=== PATIENT | male | born 1990 | race Caucasian/White ===

== ENCOUNTER 2019-02-10 12:49 | Emergency (ER) | payer OTHER ==
[~2019-02-10] VITALS: Ht 182.9 cm; Wt 77.1 kg
[~2019-02-10 12:49] MED LIST: CYCLOBENZAPRINE10 MG PO; IBUPROFEN800 MG PO; PROVENTIL HFA6.7 GM INH
[2019-02-10] MEDS ORDERED: EPIN0.3P IM (13:04)
[2019-02-10] MEDS ORDERED: NICOTINE PATCH1 EACH TD (13:04)
[2019-02-10] MEDS ORDERED: MELATONIN3 MG PO (13:05)
[2019-02-10] MEDS ORDERED: EPIPEN 2-P0.3 MG/0.3 IM (13:10)
[2019-02-10] MEDS ORDERED: BENADRYL25 MG PO (13:10)
== END 2019-02-10 14:40 | disposition home or self-care (01) ==
LOC: ED 12:49
DX: T63.441A Toxic effect of venom of bees, accidental (unintentional), initial encounter (principal); F17.200 Nicotine dependence, unspecified, uncomplicated; Z91.030 Bee allergy status; Z79.899 Other long term (current) drug therapy
CPT/HCPCS: 96374; 99283-25; J2930

== ENCOUNTER 2021-06-15 21:13 | Emergency (ER) | payer OTHER ==
[~2021-06-15] VITALS: Ht 182.9 cm; Wt 77.1 kg
[~2021-06-15 21:13] MED LIST changes: +BENADRYL25 MG PO; +EPIN0.3P IM; +EPIPEN 2-P0.3 MG/0.3 IM; +MELATONIN3 MG PO; +NICOTINE PATCH1 EACH TD
[2021-06-15] MEDS ORDERED: ACYCLOVIR200 MG PO (22:51)
== END 2021-06-15 23:20 | disposition home or self-care (01) ==
LOC: ED 21:13
DX: A60.00 Herpesviral infection of urogenital system, unspecified (principal); Z87.891 Personal history of nicotine dependence; Z91.030 Bee allergy status; Z79.899 Other long term (current) drug therapy
CPT/HCPCS: 81001; 87491; 99283

== ENCOUNTER 2021-11-14 02:38 | Emergency (ER) | payer OTHER ==
[~2021-11-14] VITALS: Ht 180.3 cm; Wt 74.1 kg
[~2021-11-14 02:38] MED LIST changes: +ACYCLOVIR200 MG PO
--- OUTSIDE RECORDS SUMMARY | 2021-11-14 02:46 | XMS ---
PreManage Notification: MELANI RANGEL Security Dowel Pointer Events No recent Security Events currently on file CRITERIA MET - [facility] - 2 Visits in 30 Days CARE PROVIDERS ANANT PEARCE [facility]Center: [facility] PHONE: [phone] SHEYLA WATTS Physician Agricultural Equipment Sales Manager Current PHONE: Unknown MIKE GARCIA [facility] Current PHONE: [phone] Emy has no Care Guidelines for this patient. E.D. VISIT COUNT (12 MO.) 3 DARON Olmos TOTAL 3 NOTE: Visits indicate total known visits. ED/UCC VISIT TRACKING (12 MO.) 11/14/2021 02:38 DARON Flores [place] TYPE: Emergency COMPLAINT: - VISION ISSUES 11/13/2021 19:01 DARON Flores [place] TYPE: Emergency COMPLAINT: - VISION PROBLEM 06/15/2021 21:14 DARON Flores [place] TYPE: Emergency COMPLAINT: - GENITAL PROBLEM DIAGNOSES: - Herpesviral infection of urogenital system, unspecified - Other parts counterman (current) drug therapy - Dysuria - Personal history of nicotine dependence - Bee allergy status INPATIENT VISIT TRACKING (12 MO.) No inpatient visits to display in this time frame [email or web address]
== END 2021-11-14 03:28 | disposition home or self-care (01) ==
LOC: ED 02:38
DX: H10.9 Unspecified conjunctivitis (principal); Z87.891 Personal history of nicotine dependence; Z91.038 Other insect allergy status; Z79.899 Other long term (current) drug therapy
CPT/HCPCS: 99283

== ENCOUNTER 2022-01-17 23:11 | Inpatient (IN) | payer OTHER ==
[~2022-01-17] VITALS: Ht 180.3 cm; Wt 73.6 kg
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
--- NOTE | 2022-01-18 02:45 | NUR ---
PT ARRIVED TO CCU VIA STRETCHER W/ GIRLFRIEND AT BEDSIDE. TRANSFER TO HOSPITAL BED W/ ASSISTANCE OF 3 RNs. RT CHEST TUBE IN PLACE W/ NOTED AIRLEAK; DRESSING RESECURED W/O FURTHER AIRLEAK NOTED AT THIS TIME. CHEST TUBE TO LIS ORDERED. PT IS DROWSY AND ROUSES EASILY. COMPLIANT W/ ASSESSMENT AND CARES. IVs PATENT- TOLERATING IVF ORDERED. PT EDUCATED ON NPO STATUS AND CHEST TUBE MANAGEMENT. PT'S GIRLFRIEND INQUIRED ABOUT SLEEPING IN BED W/ PT; INSTRUCTED ON IMPORTANCE OF MAINTAINING CHEST TUBE AND POSITIONING FOR PT SAFETY. VSS. SATTING HIGH 90s-100% ON ROOMAIR. NO DISTRESS NOTED. CALL LIGHT WITHIN REACH. WILL CONTINUE TO MONITOR.
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
--- NOTE | 2022-01-18 04:50 | NUR ---
PT IS RESTING IN BED W/ HIS EYES CLOSED AND APPEARS COMFORTABLE AT THIS TIME. CHEST TUBE TO LIS ORDERED W/O NOTED AIRLEAK. VSS. RESPIRATIONS EVEN AND UNLABORED W/O NOTED DISTRESS. IV PATENT- TOLERATING IVF. CALL LIGHT AT BEDSIDE. WILL CONT TO MONITOR.
--- NOTE | 2022-01-18 06:38 | NUR ---
PT REMAINS RESTING IN BED W/ HIS EYES CLOSED AND APPEARS COMFORTABLE. NO NOTED DISTRESS. VSS. RESPIRATIONS EVEN AND UNLABORED. SATTING 100% ON ROOM AIR. CHEST TUBE TO LIS- PT TOLERATING. CALL LIGHT AT HAND. WILL CONT TO MONITOR.
--- NOTE | 2022-01-18 07:30 | NUR ---
REPORT RECIEVED FROM MONITORING COORDINATOR RN GILMER. CARE OF PT ASSUMED AT THIS TIME.
--- NOTE | 2022-01-18 07:39 | NUR ---
IN ROOM FOR ASSESSMENT. PT ALERT AND ORIETNED. SPO2 = 100% ON ROOM AIR. CHEST TUBE TO LOW INTERMITTENT SUCTION. PT LUNGS SOUND DIM ON THE RIGHT SIDE, CLEAR OF THE LEFT. PT DENIES FEELING SHORT OF BREATH AT THIS TIME. REPORTS PAIN.
--- NOTE | 2022-01-18 09:30 | NUR ---
pt resting in bed. spo2 = 100% on room air. denies pain or shortness of breath. Call light within reach. Will continue to monitor.
--- NOTE | 2022-01-18 10:31 | NUR ---
Qasim at [facility] evaluated pt. Pt does not want drug, alcohol, or mental health support at this time.
--- NOTE | 2022-01-18 11:00 | NUR ---
DR LAY IN ROOM TO SEE PT AT THIS TIME. PLAN OF CARE ESTABLISHED. PT GIVEN WATER AT THIS TIME. CALL LIGHT WTHIN REACH. WILL CONTINUE TO MONITOR.
--- NOTE | 2022-01-18 11:39 | NUR ---
PT GIVEN PRN MEDICATION FOR PAIN (SEE EMAR).
--- NOTE | 2022-01-18 12:39 | NUR ---
REPORT GIVEN TO DILLAN MICHEL ON THE MEDICAL FLOOR. PT TRANPSORTED VIA BED. ALL BELONGINGS TRANSPORTED WITH PT.
--- NOTE | 2022-01-18 12:43 | NUR ---
Patient arrived to the medical floor from CCU dept. Patient is a&ox4, no acute distress. Chest tube intact, patent to wall suction. Small notable bubbling in chest tube canister with pt expiration. Patient denies sob and or chest pain at this time. Patient is on 2L oxygen per nc, sp02 98% at this time. No current needs.
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
--- NOTE | 2022-01-18 14:33 | NUR ---
PT SLEEPING, DID NOT DISTURB. WILL FOLLOW
--- NOTE | 2022-01-18 14:37 | NUR ---
Patient resting in bed, no distress. Lunch ordered at this time. Patient denies sob at this time, respirations non labored, sp02 95% on 2L oxygen.
--- NOTE | 2022-01-18 14:57 | NUR ---
MED REC COMPLETE
--- NOTE | 2022-01-18 15:07 | NUR ---
Spoke with pt and he states he is currently homeless,he is living in his which is not currently running in [facility]. He sometimes stays with his Aunt Kamala, in [place]. He states he prefers to not stay there. He states he is on SSDI since he was child. 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 I will give him the phone and address for [facility] in [facility] and phone number for [facility] medical transport. He denies other needs at this time. He does not use any DME at home. Plans on dc to his aunt's house when discharged.
--- NOTE | 2022-01-18 17:01 | NUR ---
aDMIN ONE TAB NoRCO 10/325MG PO FOR REPORTS OF 7/10 RIGHT RIB PAIN. SP02 99% ON 2L OXYGEN PER NC. NO RESPIRATORY DISTRESS NOTED.
--- NOTE | 2022-01-18 18:10 | NUR ---
PATIENT IN BED RESTING WITH EYES CLOSED. VITALS AND I&O'S CHARTED. CALL LIGHT IN REACH. NO FURTHER NEEDS AT THIS TIME.
--- NOTE | 2022-01-18 18:14 | NUR ---
Dr. Patel called requesting records for CT of abd/chest/pelvis and last several chest x-rays to be pushed to [facility] radiology dept. Called our in house imaging at this time, per their report they will get started on sending this information.
--- NOTE | 2022-01-18 18:37 | NUR ---
SONYA from Dr. Patel to start Augmentin 875mg po BID, start first dose now.
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
--- NOTE | 2022-01-18 19:58 | NUR ---
pt's AUNT PAWEL AGUAYO CALLED AND ASKED FOR pt UPDATE, AUNT STATES, "I WAS TALKING TO HIM ON THE PHONE BUT HE WAS HURTING TOO BAD TO TALK AND HAD TO GO". PRIMARY RN JUAN ANTONIO IN ROOM TO ASSESS PAIN. AUNT UPDATED BY THIS RN REGARDING POC AND DISCUSSED PAIN CONTROL AND TO REPEAT CHEST X-RAY IN AM. SPOKE TO pt AND PERMISSION TO GIVE UPDATE TO AUNT PAWEL AGUAYO, pt GAVE PERMISSION.
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
--- NOTE | 2022-01-18 20:17 | NUR ---
rn provided pt with a late night box lunch - he reports being hungry. repositioned in bed, vitals and i/o done with license and permit specialist. resp in room.
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
--- NOTE | 2022-01-19 02:30 | NUR ---
pt eyes closed, resp even, cpox wnl, call light in reach.
--- NOTE | 2022-01-19 05:36 | NUR ---
in room for i/o - vitals - wnl. chest tube put out 37 ml of serous drainage and marked. lcws. pt educated verbally on chest tube and current injury. pt reports he does not know how to read the printed material rn gave. verbal discussion. pt receptive to dc mechanical planner visiting again today for possible rehab for drugs and community assistance - he is homeless.
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
--- NOTE | 2022-01-19 07:45 | NUR ---
Spoke with pt. He denies needs. RT in room to give resp treatment. Pt has number for [facility] free transport and address for a long-term in town when he is discharged.
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
--- NOTE | 2022-01-19 09:35 | NUR ---
Admin two [place] 10/325mg po for reports of 8/10 right rib pain.
--- NOTE | 2022-01-19 11:27 | NUR ---
Patient in bed resting, no distress. Chest tube intact, patent with sarosang drainage noted in tubing. Patient's chest tube is currently to waterseal, no notable titaling chest tube chamber. Patient denies respiratory distress, sp02 93% at this time on 2L oxygen per nc. Patient is doing well at this time. Personal supplies and call light within reach.
--- NOTE | 2022-01-19 11:48 | NUR ---
Called Dr. Patel to obtain an order to saline lock patient as patient is drinking and voiding sufficient. Also informed Dr. Patel that the chest tube is not titaling. Per Dr. Patel, if pt becomes symptomatic place patient back to wall suction then have stat chest x-ray done. Patient is currently asymptomatic, respirations non labored, sp02 96% on 2L oxygen per nc. Patient encouarged to get up out of bed after lunch to have a short walk, pt receptive to this plan.
--- NOTE | 2022-01-19 14:45 | NUR ---
Patient in bed resting, eyes closed, respirations even and non labored. Patient's sp02 94% on 2L per nc. Patient's dressing to right chest reinforced due to corners coming loose due from pt perspiring. Patient has no respiratory distress at this time. Personal supplies and call light within reach. Patient's oral intake and urine output have been sufficient this shift. IV saline locked.
--- NOTE | 2022-01-19 17:33 | NUR ---
Admin one tab norco 10/325mg po for right rib pain. Patient's chest tube remains intact, patent, scant sarosang drainage in tubing noted, no titaling noted in chest tube canister. Patient reports unchanged slight sob while sitting up in bed eating, sp02 94% on 1L oxygen. Patient denies sob or any other discomfort. Patient requesting to walk after dinner.
--- NOTE | 2022-01-19 18:14 | NUR ---
Patient ambulated with zain RN, tolerated well. Patient now in shower, Dr. Patel notified and stated shower ok.
--- NOTE | 2022-01-19 18:45 | NUR ---
Patient showered, tolerated very well. Dressing changed as previous one was saturated with water. SPO2 93% on room air, respirations even and non labored. No respiratory distress. Call light within reach.
--- NOTE | 2022-01-19 19:30 | NUR ---
bedside report from ludivina rn, pt in bed after shower today - chest tube to water suction with no movement and no further drainage in tube today. pt tollerating pain with po meds. using IS - call light in reach. scds on, and tollerating room air.
--- NOTE | 2022-01-20 03:10 | NUR ---
no changes - pt eyes closed, resp even. call light in reach.
--- NOTE | 2022-01-20 05:52 | NUR ---
rn in pt room for vitals/ i/o. pt sleeping in no apparent distress, chest tube wnl to water seal - fresh water taken to pt, temp 99 - but room warm and pt s/o sleeping next to his side. urinal emptied for 500 ml clear urine.
--- NOTE | 2022-01-20 07:28 | NUR ---
Patient resting in bed, eyes closed, respirations even and non labored. Chest tube intact, patent with scant sarosang dranage in tubing. Patient has no notable respiratory distress, sp02 94% at this time. Pt's girlfriend at bedside sleeping. No notable patient distress. Personal supplies and call light within reach.
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
--- NOTE | 2022-01-20 12:30 | NUR ---
Dr. Patel to bedside for chest tube placement. July RN and myself at beside assisting Dr. Patel. Patient provided verbal and written consent for procedure. Chest tube placed using sterile technique. Post placement chest tube attached to LCWS per Dr. Patel's verbal order. Small bubbling noted in water seal chamber. Patient on 2L oxygen during procedure, respirations remained even and non labored, blood pressure reamins stable. Patient provided with dilaudid 1.5mg IV for procedure. Post op chest x-ray completed. Patient remains stable resting in bed, he reports pain to be tolerable. Encouraged patient to call staff if he has needs. SP02 95% ON 2L per nc.
--- NOTE | 2022-01-20 15:59 | NUR ---
THIS MORNING PATIENT ASKED FOR A PAIR OF PAJAMA BOTTOMS.
--- NOTE | 2022-01-20 17:03 | NUR ---
TO PT ROOM FOR MEDICATION ADMINISTRATION. PT ON RA WITH SPO2 98%, A/O. DENIES PAIN ATT. CHEST TUBE DRESSING CDI. CHEST TUBE TO LOW CONT SUCTION.
--- NOTE | 2022-01-20 19:50 | NUR ---
PT REQUESTS CHARGING ELDA FOR PHONE PAY AGENT, PT IS ALSO C/O PAIN, RN INFORMED, IN TO GET VITALS, PT IS DUE TO VOID, NO FURTHER NEEDS AT THIS TIME
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
--- NOTE | 2022-01-20 22:56 | NUR ---
reszating, on room air, no further c/o pain. r chest tube in place to LCWS
--- NOTE | 2022-01-21 00:24 | NUR ---
HOB ELEVTED, ON ROOM AIR, R CHEST TUBE PATENT TO LCWS,RESP EVEN UNLABORED, NO DISTRESS, CALL LIGHT AND FLUIDS AT HANDS REACH
--- NOTE | 2022-01-21 03:43 | NUR ---
ON ROOM AIR, EYES CLOSED, RESTING, NO DISTRESS, R CT PATENT TO LCWS. TOLERATING LIQUIDS WELL, USES URINAL. NO FURTHER C/O PAIN. MOVES IN BED CLL LIGHT AND FLUIDS AT HANDS REACH
--- NOTE | 2022-01-21 04:41 | NUR ---
PT C/O R SIDED PAIN, MEDICATED WITH 2 NORCO A FEW MINUTES AGO. CPOX IN PLACE. WNL, ON ROOM AIR, LUNGS STILL DIM AT R SIDED rct TO LCWS, PATENT, NO BUBBLING NOTED. TOLEERATING LIQUIDS WELL, NO EMESIS
--- NOTE | 2022-01-21 04:41 | NUR ---
IN TO GET VITALS, I&Os DONE, SODA AND WATER PROVIDED
--- NOTE | 2022-01-21 04:58 | NUR ---
PT ON ROOM AIR, HAS SLEPT ALL THIS SHIFT, HAS BEEN MEDICATED WITH NORCO 2 TABS X2 PER R SIDED PAIN, RCT IN PLACE TO LCWS WITH SMALL AMOUNT OF SS DRAINAGE. DRESSING CDI, NO BUBBLING NOTED AT THIS TIME. LUNGS DIM AT R BASES. TAKES SHALLOW BREATHING. NO COUGH NOTED. CPOX IN PLACE, WNL. AREA ABOVE DRESSING AND SIDES TOWARDS CENTER RED, TENDER, ROUND SCATERED AREAS HEALING. USES URINAL, VOIDING QS TOLERATING LIQUIDS WELL, NO C/O EMESIS. AWARE OF TO REPOSITION SELF FREQUENTLY WHEN IN BED, STATED UNDERSTANDING. PLEASANT AND COOP
--- NOTE | 2022-01-21 06:45 | NUR ---
resting, no distress, on room air, R CT patent to LCWS, scant amont of ss drainage present. call light and fluids at bedside
--- NOTE | 2022-01-21 08:12 | NUR ---
Two norco 10/325mg po admin for reports of 5/10 right rib pain. Patient remains on LCWS. no bubbling or titaling noted in chest tube canister.
--- NOTE | 2022-01-21 11:24 | NUR ---
Patient ambulated in hallway with this RN, tolerated very well. Patient reports he feels better today, denies sob. Chest tube to LCWS, tube intact/patent with minimal sarosang drainage noted. Sp02 93% on 2L per nc, no respiratory distress noted. Pt provided with fresh water. Call light within reach. Blinds open, encouraged patient to stay awake during day hours to premote healing, pt receptive to plan of care.
--- NOTE | 2022-01-21 12:46 | NUR ---
Dr. Kapadia to bedside to remove chest tube. Patient tolerated chest tube removal well. Sp02 95% on room air, respirations even and non labored.
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
--- NOTE | 2022-01-21 20:08 | NUR ---
pt on room air, ambulating hallways, no c/o pain at this time.
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
--- NOTE | 2022-01-21 21:04 | NUR ---
In bed laying on left side, hob elevated, spot check O2 94%. O2 2LNC placed back on, pt aware of MDs orders, Pt denies sob. compliant, coop, no c/o pain or sob, call light and fresh fluids at hands reach
--- NOTE | 2022-01-21 23:48 | NUR ---
O2 2L NC IN PLACE, EYES CLOSED, NO DISTRESS, TURNS AND REPOSITIONS SELF IN BED. FAMILY AT BEDSIDE
--- NOTE | 2022-01-22 00:49 | NUR ---
using 2L NC, cpox 98%, c/o R sided pain, medicated with 1 norco and 1 Ibuprofen. awakens easily, female friend visiting
--- NOTE | 2022-01-22 02:30 | NUR ---
resting, no distress, O2 2LNC inplace, resting on L side. female friend rooming in
--- NOTE | 2022-01-22 03:35 | NUR ---
O2 2LNC inplace, no distress, eyes closed. dressing R chest area CDI. call light and fluids at bedside. significant other rooming in
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
--- NOTE | 2022-01-22 09:00 | NUR ---
Admin Ibuprofen 600mg and Percocet 7.5/325mg po for reports of 5/10 right rib pain.
--- NOTE | 2022-01-22 11:18 | NUR ---
Patient ambulated, tolerated well. Patient reports he feels a bit better today, no sob. Vital signs are stable, spo2 is 93% on room air. Tape to right chest is CDI.
--- NOTE | 2022-01-22 15:10 | NUR ---
Admin Ibuprofen 600mg and Percocet 7.5/325mg po for reports of 5/10 right rib pain.
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
--- NOTE | 2022-01-22 20:40 | NUR ---
pt sitting up in bed, room air lungs clear, front and back R wound areas healing, dressing R previous chest tube areas healing. intact. cooperative, irritable with significant other via phone. calmed down, cooperative. SL RA patent. ambulating in room. no c/o pain at this time. voiding qs
--- NOTE | 2022-01-22 22:30 | NUR ---
resting, no distress, turns and repositions self in bed. call light and fluids at hands reach
--- NOTE | 2022-01-23 01:18 | NUR ---
resting, on room air, independent, voids qs, tolerating liquids well. call ligth and fluids at hands reach
--- NOTE | 2022-01-23 02:49 | NUR ---
ICE WATERAND SODA PROVIDED.
--- NOTE | 2022-01-23 03:28 | NUR ---
On room air, turns and repositions self in bed. walked hallway to nursing station earlier. reating at this time, eyes closed, no distress
--- NOTE | 2022-01-23 06:00 | NUR ---
PT AWAKES EASILY C/O MILD R SIDED PAIN, MEDICATED WITH TYLENOL 1000MG PO. TOLERATING LIQUIDS WELL, NO EMESIS, TURNS AND REPOSITIONS SELF IN BED
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
--- NOTE | 2022-01-23 07:05 | NUR ---
bedside report from Linn RN, pt returned from shower - r chest tube insision dressed with new wanda and tape by this rn. pt denies needs.
--- NOTE | 2022-01-23 08:04 | NUR ---
0729 - PT SLEEPING WITHOUT OXYGEN AGAIN AND PULSE OXIMETER IS OFF ALSO. PT IN NO DISTRESS AT THIS TIME.
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
--- NOTE | 2022-01-23 09:38 | NUR ---
Dr. Kapadia here again to check on update for pt plans for discharge. No changes yet - rn continues to help pt with offers for community assistance - pt declines.
--- NOTE | 2022-01-23 10:09 | NUR ---
This RN and Dc menu planner Yessenia in to visit with pt - Loi has plan to dc with uncle owen - [phone] Dr. Kapadia notified - and papers should be done after lunch around 1 pm - pt and uncle owen aware and we will call when pt is ready for ride out.
--- NOTE | 2022-01-23 10:12 | NUR ---
f/u appt made with dr. bowen per dr. guevara f/u appt with pcp dr. Munguia at [facility] - not able to be made - pt is no longer to be seen for failure to keep appt.
--- NOTE | 2022-01-23 11:05 | NUR ---
pt amb in [place] - denies needs, no appt. distress.
--- NOTE | 2022-01-23 13:57 | NUR ---
here to see pt - no iv - denies needs, pharmacy notified.
[2022-01-23] MEDS ORDERED: IBUPROFEN600 MG PO (14:06)
[2022-01-23] MEDS ORDERED: ACETAMINOPHEN500 MG PO (14:06)
== END 2022-01-23 14:15 | disposition home or self-care (01) | DRG 201 ==
LOC: ED 23:11 → CCU 01-18 02:05 → MS 01-18 02:05
PROVIDERS: ADMIT Colon & Rectal Surgery; ATTEND Colon & Rectal Surgery
PROC: 0HC6XZZ Extirpation of Matter from Back Skin, External Approach (ICD-10-PCS; 2022-01-19)
PROC: 0W9930Z Drainage of Right Pleural Cavity with Drainage Device, Percutaneous Approach (ICD-10-PCS; principal; 2022-01-20)
DX: S27.0XXA Traumatic pneumothorax, initial encounter (principal); Z20.822 Contact with and (suspected) exposure to COVID-19; F11.90 Opioid use, unspecified, uncomplicated; F10.10 Alcohol abuse, uncomplicated; Z87.891 Personal history of nicotine dependence; Z87.820 Personal history of traumatic brain injury; Z90.49 Acquired absence of other specified parts of digestive tract; Z98.890 Other specified postprocedural states; Z91.030 Bee allergy status; Z79.2 Long term (current) use of antibiotics; Z79.899 Other long term (current) drug therapy; W34.00XA Accidental discharge from unspecified firearms or gun, initial encounter
CPT/HCPCS: 32551; 36415; 71045; 71260; 74177; 80048; 80053; 81001; 85025; 85610; 86850; 86900; 86901; 87502; 90471; 90715; 94640; 94760; 94762; 99285-25; A9270; C9113; C9803; G0480; J1170; J2250; J3010; J7121; Q9967; U0003

== ENCOUNTER 2022-05-30 08:38 | Emergency (ER) | payer OTHER ==
[~2022-05-30] VITALS: Ht 180.3 cm; Wt 73.5 kg
[~2022-05-30 08:38] MED LIST changes: +ACETAMINOPHEN500 MG PO; +IBUPROFEN600 MG PO
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
[2022-05-30] MEDS ORDERED: BUSPIRONE HCL15 MG PO (08:54)
[2022-05-30] MEDS ORDERED: ARIPIPRAZOLE5 MG PO (08:54)
[2022-05-30] MEDS ORDERED: DOXYCYCLINE HY100 MG PO (11:43)
[2022-05-30] MEDS ORDERED: VENTOLIN HFA18 GM INH (11:43)
== END 2022-05-30 12:01 | disposition home or self-care (01) ==
LOC: ED 08:38
DX: J42 Unspecified chronic bronchitis (principal); R04.2 Hemoptysis; Z87.891 Personal history of nicotine dependence; Z79.899 Other long term (current) drug therapy; Z91.030 Bee allergy status
CPT/HCPCS: 71275; 74022; 99284-25; Q9967

== ENCOUNTER 2022-06-08 15:28 | Emergency (ER) | payer OTHER ==
[~2022-06-08 15:28] MED LIST changes: +ARIPIPRAZOLE5 MG PO; +BUSPIRONE HCL15 MG PO; +DOXYCYCLINE HY100 MG PO; +VENTOLIN HFA18 GM INH
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
== END 2022-06-08 15:52 | disposition other institution, planned readmission (95) ==
LOC: ED 15:28
DX: T25.221A Burn of second degree of right foot, initial encounter (principal); T23.202A Burn of second degree of left hand, unspecified site, initial encounter; T23.201A Burn of second degree of right hand, unspecified site, initial encounter; Z87.891 Personal history of nicotine dependence; Z91.030 Bee allergy status; Z79.899 Other long term (current) drug therapy; X58.XXXA Exposure to other specified factors, initial encounter
CPT/HCPCS: 99283

== ENCOUNTER 2022-07-19 21:51 | Emergency (ER) | payer OTHER ==
[~2022-07-19] VITALS: Ht 180.3 cm; Wt 76.0 kg
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
[2022-07-19] MEDS ORDERED: CEPHALEXIN500 MG PO (23:44)
[2022-07-19] MEDS ORDERED: AMOX TR-K CLV1 EAC1 PO (23:46)
== END 2022-07-20 | disposition home or self-care (01) ==
LOC: ED 21:51
DX: L03.116 Cellulitis of left lower limb (principal); J32.9 Chronic sinusitis, unspecified; Z87.891 Personal history of nicotine dependence; Z91.030 Bee allergy status
CPT/HCPCS: 36415; 73610; 80053; 84550; 85025; 86140; 86141; 99283-25

== ENCOUNTER 2023-03-01 11:45 | Emergency (ER) | payer OTHER ==
[~2023-03-01] VITALS: Ht 180.3 cm; Wt 75.8 kg
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
[~2023-03-01 11:45] MED LIST changes: +AMOX TR-K CLV1 EAC1 PO; +CEPHALEXIN500 MG PO
[2023-03-01 13:30] VITALS: BP 00/00
--- NOTE | 2023-03-03 17:07 | EKG ---
[facility] [address] [place], [place] [address] Signed Sinus tachycardia Otherwise normal ECG No previous ECGs available Confirmed by ENRIQUE MILLER MD ([id number]) on 03/03/2023 5:06:57 PM Electronically Signed By: ENRIQUE MILLER 03/03/23 1707 PATIENT NAME: CLAIREMELANI Leona Electrocardiogram DATE OF : 88 PHYSICIAN: ENRIQUE MILLER REPORT #: [id number] REPORT IS CONFIDENTIAL AND NOT TO BE RELEASED WITHOUT AUTHORIZATION
== END 2023-03-01 13:50 | disposition left against medical advice (07) ==
LOC: ED 11:45
DX: Z53.21 Procedure and treatment not carried out due to patient leaving prior to being seen by health care provider (principal)
CPT/HCPCS: 93005; 93010